=== PATIENT | male | born 1970 | race Two or more races ===

== ENCOUNTER 2016-10-25 13:13 | Emergency (ER) | payer SELFPAY ==
--- NOTE | 2016-10-25 14:15 | RADIOLOGY REPORT (SQ) ---
EXAM DESCRIPTION: CHEST PA/LAT COMPLETED DATE/TIME: 10/25/2016 2:05 pm REASON FOR STUDY: AMS COMPARISON: None. EXAM PARAMETERS: NUMBER OF VIEWS: two views TECHNIQUE: Digital Frontal and Lateral radiographic views of the chest acquired. RADIATION DOSE: NA LIMITATIONS: none FINDINGS: LUNGS AND PLEURA: No opacities, masses or pneumothorax. No pleural effusion. MEDIASTINUM AND HILAR STRUCTURES: No masses or contour abnormalities. HEART AND VASCULAR STRUCTURES: Heart normal size. No evidence for failure. BONES: No acute findings. HARDWARE: None in the chest. OTHER: No other significant finding. IMPRESSION: NO SIGNIFICANT RADIOGRAPHIC FINDING IN THE CHEST. TECHNICAL DOCUMENTATION: JOB ID: [email or web address]- All Rights Reserved
--- NOTE | 2016-10-25 14:15 | RADIOLOGY REPORT (SQ) ---
EXAM DESCRIPTION: CT HEAD WITHOUT COMPLETED DATE/TIME: 10/25/2016 2:03 pm REASON FOR STUDY: AMS COMPARISON: None. TECHNIQUE: Axial images acquired through the brain without intravenous contrast. Images reviewed wi th bone, brain and subdural windows. Images stored on PACS. All CT scanners at this facility use dose modulation, iterative reconstruction, and/or weight based d osing when appropriate to reduce radiation dose to as low as reasonably achievable (ALARA). [facility]: Dose Right [facility]: CareDose [facility]: Dose Right [facility]: Teradose 4D [facility]: [employer] RADIATION DOSE: Up-to-date CT equipment and radiation dose reduction techniques were employed. CTDIv ol: 64.6 mGy. DLP: 1163 mGy-cm. mGy. LIMITATIONS: None. FINDINGS: VENTRICLES: Normal size and contour. CEREBRUM: No masses. No hemorrhage. No midline shift. Normal read/white matter differentiation. N o evidence for acute infarction. CEREBELLUM: No masses. No hemorrhage. No alteration of density. No evidence for acute infarction. EXTRAAXIAL SPACES: No fluid collections. No masses. ORBITS AND GLOBE: No intra- or extraconal masses. Normal contour of globe without masses. CALVARIUM: No fracture. PARANASAL SINUSES: Mucous retention cyst right maxillary sinus. Mild ethmoid sinus disease. SOFT TISSUES: No mass or hematoma. OTHER: No other significant finding. IMPRESSION: NORMAL BRAIN CT WITHOUT CONTRAST. TECHNICAL DOCUMENTATION: JOB ID: [id number] Quality ID # [id number]: Final reports with documentation of one or more dose reduction techniques (e.g., Au tomated exposure control, adjustment of the mA and/or kV according to patient size, use of iterative reconstruction technique) 2010 [email or web address]- All Rights Reserved
[2016-10-25 14:59] LABS: ABSOLUTE BASOPHILS # (AUTO) 0.1 10^3/uL (0.0-0.2); ABSOLUTE EOSINOPHILS # (AUTO) 0.2 10^3/uL (0.0-0.6); ABSOLUTE LYMPHOCYTES (AUTO) 2.4 10^3/uL (0.5-4.7); ABSOLUTE NEUT (AUTO) 9.1 10^3/uL (1.7-8.2); BASOPHILS % (AUTO) 0.8 % (0-2); EOSINOPHILS % (AUTO) 1.3 % (0-6); HEMATOCRIT 49.1 % (37.9-51.0); HEMOGLOBIN 16.3 g/dL (13.5-17.0); HGB HCT DIFFERENCE -0.2; LYMPHOCYTES % (AUTO) 19.1 % (13-45); MEAN CORPUSCULAR HEMOGLOBIN 30.2 pg (27.0-33.4); MEAN CORPUSCULAR HGB CONC 33.3 g/dL (32.0-36.0); MEAN CORPUSCULAR VOLUME 91 fl (80-97); MONOCYTES % (AUTO) 7.5 % (3-13); RED BLOOD COUNT 5.42 10^6/uL (4.35-5.55); RED CELL DISTRIBUTION WIDTH 13.5 % (11.5-14.0); SEGMENTED NEUTROPHILS % (AUTO) 71.3 % (42-78); WHITE BLOOD COUNT 12.8 10^3/uL (4.0-10.5)
[2016-10-25 15:02] LABS: APPEARANCE,URINE SLIGHTLY-CLOUDY; BILIRUBIN,URINE SMALL (NEGATIVE); GLUCOSE, URINE NEGATIVE (NEGATIVE); KETONES,URINE 20 mg/dL (NEGATIVE); LEUKOCYTE ESTERASE,URINE NEGATIVE (NEGATIVE); NITRITE,URINE NEGATIVE (NEGATIVE); PROTEIN,URINE 100 mg/dL (NEGATIVE); URINE SPECIFIC GRAVITY 1.029
[2016-10-25 15:19] LABS: ALANINE AMINOTRANSFERASE 29 U/L (21-72); ALBUMIN 4.6 g/dL (3.5-5.0); ALCOHOL < 10 mg/dL (NONE DETECTED); ALKALINE PHOSPHATASE 68 U/L (38-126); ANION GAP 13 (5-19); ASPARTATE AMINO TRANSFERASE 27 U/L (17-59); BILIRUBIN,DIRECT 0.3 mg/dL (0.0-0.4); BILIRUBIN,TOTAL 1.2 mg/dL (0.2-1.3); BLOOD UREA NITROGEN 15 mg/dL (7-20); CALCIUM 9.6 mg/dL (8.4-10.2); CARBON DIOXIDE 26 mmol/L (22-30); CHLORIDE 103 mmol/L (98-107); CREATININE RESULT 0.76 mg/dL (0.52-1.25); GLUCOSE 103 mg/dL (75-110); POTASSIUM 3.4 mmol/L (3.6-5.0); SODIUM 142.1 mmol/L (137-145)
[2016-10-25 15:25] LABS: URINE BARBITURATES SCREEN NEGATIVE; URINE METHADONE SCREEN NEGATIVE; URINE OPIATES LOW NEGATIVE; URINE PHENCYCLIDINE SCREEN NEGATIVE
[2016-10-25] MEDS ORDERED: NORMAL SALINE 1000 ML 1,000 ML IV ONE (16:20)
--- NOTE | 2016-10-25 16:34 | EKG REPORT ---
SEVERITY:- ABNORMAL ECG - SINUS RHYTHM RBBB AND LAFB : Confirmed by: Gilma Magallanes 25-Oct-2016 16:33:30
--- NOTE | 2016-10-25 17:14 | ER Document Report ---
ED General - General Chief Complaint: Psych Problem Stated Complaint: ALTERED MENTAL STATUS Time Seen by Provider: 10/25/16 13:22 Mode of Arrival: Ambulatory Notes: Patient is a 45-year-old male who presents with his cousin who is present at the bedside. History is per cousin interpretation given that the patient's is a Serbian speaker only. Family, patient was found sleeping outside of his home this morning possibly locked out. He was wandering around trying to break into neighbor's home when his cousin was called to come pick him up. When his cousin was to go get him he was confused and aware he was in disoriented. states that patient had a history of this about 3 years ago where he came to this department For a couple of days and discharged with medications. Cousin states that he is no longer taking medications and does not have a primary care provider. TRAVEL OUTSIDE OF THE [place] IN LAST 30 DAYS: No - Related Data Allergies/Adverse Reactions: No Known Allergies Allergy (Verified 10/25/16 14:24) Home Medications: Current Home Medications No Home Medications 10/25/16 [History] Past Medical History - General Information source: Patient, Relative - cousin is bedside - Social History Smoking Status: Current Every Day Smoker Chew tobacco use (# tins/day): No Frequency of alcohol use: None Drug Abuse: None Family History: Reviewed & Not Pertinent Patient has suicidal ideation: No Patient has homicidal ideation: No Renal/ Medical History: Denies: Hx Peritoneal Dialysis Review of Systems - Review of Systems Constitutional: No symptoms reported Gastrointestinal: Nausea, Poor fluid intake, Last bowel movement - today- normal. denies: Diarrhea, Vomiting, Constipation, Poor appetite Genitourinary: No symptoms reported Neurological/Psychological: Confusion. denies: Hallucinations, Homicidal ideation, Seizure, Lost consciousness, Headaches, Suicidal ideation -: Yes All other systems reviewed and negative Physical Exam - Vital signs Vitals: Temp Pulse Resp BP Pulse Ox 97.9 F 90 20 131/95 H 97 10/25/16 13:18 10/25/16 13:18 10/25/16 13:18 10/25/16 13:18 10/25/16 13:18 - Notes Notes: PHYSICAL EXAM GENERAL: Alert, interacts well. HEAD: Normocephalic, atraumatic. EYES: Pupils equal, round, and reactive to light. Extraocular movements intact. ENT: Oral mucosa moist, tongue midline. NECK: Full range of motion. Supple. Trachea midline. LUNGS: Clear to auscultation bilaterally, no wheezes, rales, or rhonchi. No respiratory distress. HEART: Regular rate and rhythm. No murmurs, gallops, or rubs. ABDOMEN: Soft, nondistended, nontender. No guarding, rebound, or rigidity.. Bowel sounds present in all 4 quadrants. EXTREMITIES: Moves all 4 extremities spontaneously. No edema, radial and dorsalis pedis pulses 2/4 bilaterally. No cyanosis. NEUROLOGICAL: Alert and oriented to person but not place, time or events. Normal speech. SKIN: Warm, dry, normal turgor. No rashes or lesions noted. - Psychological Associated symptoms: Normal affect, Normal mood, Paranoid - is resistant to nursing to use alcohol swabs on his skin becuase he thinks it will harm him, Restlessness - continuously picking at his nose. No: Auditory hallucinations, Circumferential speech, Depressed, Flight of ideas, Irritable, Manic, Tearful, Uncooperative, Visual hallucinations Course - Re-evaluation Re-evalutation: 10/25/16 19:50 Patient is a 45-year-old male who is hemodynamic stable, no distress afebrile. Patient presents with reported altered mental status. CT of the head normal. Labs show evidence of mild dehydration. Patient given a 500 cc bolus. Mental health consult reveals likely mild MR. Evaluation of previous medical records under a different last name from previous visit where he was worked up for this in the past. At this time patient is not deemed harm to himself or others. He has been independent on his own for the past 3 years without any issues. At this time clinically improved from his initial evaluation by his cousin. Patient oriented to person and time but not place when patient asked where he is he was at it home he said no but we told him he is at the hospital he said okay that makes sense. Patient is to be discharged home with his cousin and to return for any worsening symptoms. Patient and family agreeable with plan. - Vital Signs Vital signs: Temp Pulse Resp BP Pulse Ox 98.2 F 90 16 119/80 99 10/25/16 18:23 10/25/16 13:18 10/25/16 18:01 10/25/16 18:00 10/25/16 18:01 - Laboratory Result Diagrams: 10/25/16 14:42 10/25/16 14:42 Laboratory results interpreted by me: 10/25/16 10/25/16 10/25/16 14:30 14:42 14:42 WBC 12.8 H Absolute Neutrophils 9.1 H Potassium 3.4 L Urine Protein 100 H Urine Ketones 20 H Urine Blood SMALL H Urine Bilirubin SMALL H Urine Urobilinogen 2.0 H Salicylates < 1.0 L Acetaminophen < 10 L - Diagnostic Test Radiology reviewed: Image reviewed, Reports reviewed Discharge - Discharge Clinical Impression: Confusion, Dehydration, Altered mental status, unspecified Condition: Stable Disposition: HOME, SELF-CARE Instructions: Intravenous (IV) Fluids ([facility]), Dehydration ([facility]) Additional Instructions: Altered Mental Status An altered mental status is a change in the normal functioning of the brain. This alteration of function can range from minor decreased brain function with some forgetfulness and confusion to complete loss of consciousness and coma. There are many possible causes of an altered mental status and include brain injuries such as trauma or strokes, problems with oxygen supply to the brain, fever and infections of the brain and/or elsewhere in the body, metabolic abnormalities such as low or high blood sugar, overdoses or excessive medication ingestion, and mental and psychiatric illnesses. Sometimes the altered mental status resolves and a definite cause is not determined. If a cause for your altered mental status was found, it has likely been corrected. Your evaluation has not shown any condition that requires that you be admitted to the hospital. It is believed that you are safe to leave and return to your home. If you have a return of your symptoms, you should return for re-evaluation. Please follow up with [facility]. They will work with you regardless of your financial and legal status. Please return to your local ER if your symptoms worsen. Please drink plenty of water. Referrals: [facility] [Provider Group] - Follow up in 3-5 days
--- NOTE | 2016-10-25 17:57 | ER Document Report ---
ED Psych Disorder / Suicide - General Mode of Arrival: Ambulatory Information source: Patient, Relative - cousin is bedside, [facility] Records - pt's prior episode is under Joaquin Max Cannot obtain history due to: Altered mental status TRAVEL OUTSIDE OF THE [place] IN LAST 30 DAYS: No - HPI Patient complains to provider of: Bizarre behavior Onset: Other Onset was: Cannot confirm Suicide Risk Factors: Frightened friends/family, Male, Schizophrenia - unknown history, Other mental health dx. Normal mood: Yes Associated symptoms: Paranoid - per nurse reports Similar symptoms previously: Yes - seen previously in the Department Recently seen / treated by doctor: No <KEVIN CHASE - Last Filed: 10/25/16 17:56> <CHELSEY TELLEZ - Last Filed: 10/26/16 09:42> - General Chief Complaint: Psych Problem Stated Complaint: ALTERED MENTAL STATUS Time Seen by Provider: 10/25/16 13:22 - HPI Notes: Patient is a 45 year old male who presents via his cousin due to concerns regarding AMS. Patient is Sammarinese speaking only and his cousin who is bedside will provide translation services.. Patient has had 1 prior episode similar to the current, and was evaluated here in the Department. Patient was reportedly found wandering the streets with bizarre behaviors, to include wandering around the streets, and not properly engaging in conversation. Patient states he knew what he was doing, which was walking. Patient denies any concerns at this time. Patient denies drugs or alcohol. Note, previous episode is under patient's name Joaquin Max. Cousin who is bedside states he received a call from patient's friend this morning stating he was not making any sense and wandering around. Cousin states he has not spoken with the patient in about 2 years, but that he knows he has had an episode similar in the past. Cousin reports the he himself lives in [facility] and the patient resides in [facility]. cousin reports he brought him here because he thought there were be record of the prior episode. Cousin states he does know the patient has two brothers, both of whom have similar episodes. Cousin states he is not sure of their condition, but states the patient's mother and father are closely related, possibly first cousins. Cousin states when he arrived on scene this morning he could tell the patient was not quite himself, but states he does seem better now. Patient appears A&O. Mood is euthymic and he is calm and cooperative. Patient denies SI/HI; intent, plan, or means. Patient denies A/V H. Thought processes were guarded. Conversational speech was limited due to language barrier. Intellectual abilities were estimated within lower functioning range. Attention and focus were fair. Insight, judgment, and impulse control were fair. Diagnosis: Deferred Patient is psychiatrically cleared for discharge. Patient denies thoughts of harming himself or others. Patient denies A/V H. Patient reported he has a safe place to live and works/functions within the community. I consulted with Dr. Tellez in regards to the care and management of this patient. (KEVIN CHASE) - Related Data Allergies/Adverse Reactions: No Known Allergies Allergy (Verified 10/25/16 14:24) Home Medications: Current Home Medications No Home Medications 10/25/16 [History] Past Medical History - Social History Smoking Status: Current Every Day Smoker Chew tobacco use (# tins/day): No Frequency of alcohol use: None Drug Abuse: None Patient has suicidal ideation: No Patient has homicidal ideation: No Renal/ Medical History: Denies: Hx Peritoneal Dialysis <KEVIN CHASE - Last Filed: 10/25/16 17:56> - Social History Family History: None <CHELSEY TELLEZ - Last Filed: 10/26/16 09:42> Course - Laboratory Result Diagrams: 10/25/16 14:42 10/25/16 14:42 <KEVIN CHSAE - Last Filed: 10/25/16 17:56> - Laboratory Result Diagrams: 10/25/16 14:42 10/25/16 14:42 <CHELSEY TELLEZ - Last Filed: 10/26/16 09:42> - Vital Signs Vital signs: Temp Pulse Resp BP Pulse Ox 98.2 F 90 16 119/80 99 10/25/16 18:23 10/25/16 13:18 10/25/16 18:01 10/25/16 18:00 10/25/16 18:01 - Laboratory Laboratory results interpreted by me: 10/25/16 10/25/16 10/25/16 14:30 14:42 14:42 WBC 12.8 H Absolute Neutrophils 9.1 H Potassium 3.4 L Urine Protein 100 H Urine Ketones 20 H Urine Blood SMALL H Urine Bilirubin SMALL H Urine Urobilinogen 2.0 H Salicylates < 1.0 L Acetaminophen < 10 L Discharge <KEVIN CHASE - Last Filed: 10/25/16 17:56> <CHELSEY TELLEZ - Last Filed: 10/26/16 09:42> - Discharge Clinical Impression: Confusion, Dehydration, Altered mental status, unspecified Condition: Stable Disposition: HOME, SELF-CARE Instructions: Dehydration ([facility]), Intravenous (IV) Fluids ([facility]) Additional Instructions: Altered Mental Status An altered mental status is a change in the normal functioning of the brain. This alteration of function can range from minor decreased brain function with some forgetfulness and confusion to complete loss of consciousness and coma. There are many possible causes of an altered mental status and include brain injuries such as trauma or strokes, problems with oxygen supply to the brain, fever and infections of the brain and/or elsewhere in the body, metabolic abnormalities such as low or high blood sugar, overdoses or excessive medication ingestion, and mental and psychiatric illnesses. Sometimes the altered mental status resolves and a definite cause is not determined. If a cause for your altered mental status was found, it has likely been corrected. Your evaluation has not shown any condition that requires that you be admitted to the hospital. It is believed that you are safe to leave and return to your home. If you have a return of your symptoms, you should return for re-evaluation. Please follow up with [facility]. They will work with you regardless of your financial and legal status. Please return to your local ER if your symptoms worsen. Please drink plenty of water. Referrals: [facility] [Provider Group] - Follow up in 3-5 days
[2016-10-25 18:18] VITALS: BP 119/80
== END 2016-10-25 18:31 | disposition home or self-care (01) ==
LOC: ER 13:13
DX: R41.0 Disorientation, unspecified (principal); E86.0 Dehydration; R11.0 Nausea; R45.1 Restlessness and agitation; F17.200 Nicotine dependence, unspecified, uncomplicated
CPT/HCPCS: 93005; 99284; 36415; 80307 ×4; 85025; 80053; 81001; 71020; 70450; 93010; J7030